=== PATIENT | female | born 1995 | race Caucasian/White ===

== ENCOUNTER 2016-12-31 18:46 | Observation (INO) | payer OTHER ==
[~2016-12-31] VITALS: Ht 170.2 cm; Wt 65.0 kg
[2016-12-31 18:48] VITALS: BP 135/93; PULSE 118; RESP 13; TEMP 98.8; O2SAT 99
[2016-12-31] MEDS ORDERED: SODIUM CHLOR 0.9% 1000 ML INJ 1,000 ML IV SCH ×2 (20:34)
[2016-12-31] MEDS ORDERED: ONDANSETRON HCL 4 MG/2 ML VIAL IVP ONE (20:45)
--- NOTE | 2016-12-31 20:50 | PD ---
HPI Chief Complaint: Medical Clearance Time Seen by Provider: 20:35 Travel History International Travel<30 days: No Contact w/Intl Traveler<30days: No Traveled to known affect area: No History of Present Illness HPI This is a 21-year-old female presents for evaluation of nausea, vomiting, diarrhea. The patient reports that one month ago her psychiatrist started her on 100 mg Zoloft for anxiety and depression. This was increased to 200 mg once a day 1 week ago. She reports that 5 days ago she began having nausea and vomiting was diarrhea. She believes that these may be side effects of Zoloft. She reports multiple episodes of emesis daily as well as watery stool. She feels like she is getting dehydrated, she has had difficulty keeping down any food or fluids. She does endorse a headache. She reports that yesterday she stood up and felt lightheaded and had a syncopal episode. There was no seizure activity per her significant other who was present during this episode. Patient is currently feeling lightheaded as well. She denies any fevers, flank pain, dysuria, chest pain or shortness of breath. Denies any dietary changes. No sick contacts with nausea and vomiting. No other medication changes. No other complaints. PFSH Past Medical History Depression: Yes Tetanus Vaccination: < 5 Years Influenza Vaccination: No ?: Not Social History Alcohol Use: Yes (occu, couple weeks ago) Tobacco Use: No Substance Use: Yes (juanna week ago) Allergies-Medications (Allergen,Severity, Reaction): Coded Allergies: No Known Allergies (Unverified , 12/31/16) Review of Systems Except as stated in HPI: all other systems reviewed are Neg Physical Exam Narrative GENERAL: Well-developed well-nourished female in no acute distress. She is tachycardic in triage. SKIN: Warm and dry. HEAD: Atraumatic. Normocephalic. EYES: Pupils equal and round. No scleral icterus. No injection or drainage. ENT: No nasal bleeding or discharge. Mucous membranes pink and moist. NECK: Trachea midline. No JVD. CARDIOVASCULAR: Regular rate and rhythm. No murmur appreciated. RESPIRATORY: No accessory muscle use. Clear to auscultation. Breath sounds equal bilaterally. GASTROINTESTINAL: Abdomen soft, non-tender, nondistended. Hepatic and splenic margins not palpable. No CVA tenderness. MUSCULOSKELETAL: No obvious deformities. No edema. NEUROLOGICAL: Awake and alert. No obvious cranial nerve deficits. Motor grossly within normal limits. Normal speech. PSYCHIATRIC: Appropriate mood and affect; insight and judgment normal. Data Data Last Documented VS Vital Signs Date Time Temp Pulse Resp B/P Pulse Ox O2 Delivery O2 Flow Rate FiO2 12/31/16 18:48 98.8 118 13 135/93 99 Orders Complete Blood Count With Diff (12/31/16 20:34) Comprehensive Metabolic Panel (12/31/16 20:34) Ondansetron Inj (Zofran Inj) (12/31/16 20:45) Sodium Chlor 0.9% 1000 Ml Inj (Ns 1000 M (12/31/16 20:34) Electrocardiogram (12/31/16 20:34) Ed Urine Pregnancytest Poc (12/31/16 20:34) Sodium Chlor 0.9% 1000 Ml Inj (Ns 1000 M (12/31/16 20:34) Magnesium (Mg) (12/31/16 20:34) Urinalysis - C+S If Indicated (12/31/16 20:34) Orthostatic Vital Signs (12/31/16 20:42) MDM Medical Decision Making Medical Screen Exam Complete: Yes Emergency Medical Condition: Yes Medical Record Reviewed: Yes Differential Diagnosis Medication side effect, gastroenteritis, dehydration, electrolyte abnormality, orthostatic hypotension Narrative Course This is a 21-year-old female whose Zoloft dose was increased to 200 mg one week ago. She has had nausea, vomiting, diarrhea since then and feels like she is getting dehydrated. Yesterday evening she had a syncopal event. On initial examination she is tachycardic with a heart rate of 118. Plan is for basic lab work, EKG, 2 L IV fluids and Zofran have been ordered. 2052: At the end of my shift the patient was signed out to my attending who will follow-up on the lab work. Blanco Siu Dec 31, 2016 20:50
[2016-12-31 21:07] LABS: AUTOMATED NEUTROPHIL # 3.9 TH/MM3 (1.8-7.7); BASOPHIL % 0.6 % (0.0-2.0); EOSINOPHIL # 0.2 TH/MM3 (0-0.4); EOSINOPHIL % 3.2 % (0.0-4.0); HEMATOCRIT 41.4 % (35.0-46.0); HEMO FLAGS DIFF FINAL; LYMPH % 25.8 % (9.0-44.0); LYMPHOCYTE # 1.6 TH/MM3 (1.0-4.8); MEAN CELL VOLUME 87.5 FL (80.0-100.0); MEAN CORPUSCULAR HEMOGLOBIN 29.7 PG (27.0-34.0); MEAN CORPUSCULAR HGB CONC 33.9 % (32.0-36.0); MONO % 8.3 % (0.0-8.0); NEUT % 62.1 % (16.0-70.0); PLATELET COUNT 325 TH/MM3 (150-450); RED BLOOD COUNT 4.73 MIL/MM3 (4.00-5.30); RED CELL DISTRIBUTION WIDTH 12.5 % (11.6-17.2); WHITE BLOOD COUNT 6.3 TH/MM3 (4.0-11.0)
[2016-12-31 21:42] LABS: ANION GAP 21 MEQ/L (5-15); AST (GOT) 20 U/L (15-37); BICARBONATE 13.8 MEQ/L (21.0-32.0); BLOOD UREA NITROGEN 6 MG/DL (7-18); CHLORIDE 101 MEQ/L (98-107); GLOMERULAR FILTRATION RATE 75 ML/MIN (>89); MAGNESIUM 1.8 MG/DL (1.5-2.5); POTASSIUM 3.4 MEQ/L (3.5-5.1); SODIUM (NA) 136 MEQ/L (136-145)
[2016-12-31 21:44] LABS: ALT (GPT) 18 U/L (10-53)
[2016-12-31 21:46] LABS: ALKALINE PHOSPHATASE 61 U/L (45-117); TOTAL BILIRUBIN ADULT 0.4 MG/DL (0.2-1.0)
[2016-12-31 22:44] VITALS: BP_SYST 125; BP_SYST 128; BP_SYST 133; BP_DIAS 75; BP_DIAS 80; BP_DIAS 98; RESP 16
[2016-12-31 22:51] LABS: BACTERIA, URINE RARE /hpf; BLOOD, URINE NEG (NEG); GLUCOSE,URINE NEG (NEG); KETONE, URINE 150 mg/dL (NEG); MUCUS URINE FEW /lpf (OCC); NITRITE,URINE NEG (NEG); SQUAMOUS EPITHELIAL CELL URINE 7 /hpf (0-5); URINE COLOR YELLOW (YELLW/STRAW)
[2016-12-31 22:52] LABS: COMMENT (UR) CULT NOT INDICATED; CULTURE IF INDICATED CULT NOT INDICATED
[2016-12-31 23:10] VITALS: BP 126/87; PULSE 98; RESP 18; O2SAT 100
[2016-12-31 23:25] LABS: BLOOD GAS VENOUS BASE EXCESS -13.8 mmol/L (-2-2); BLOOD GAS VENOUS HCO3 12 mmol/L (22-26); BLOOD GAS VENOUS O2 CONTENT 14.9 Vol % (9.0-17.0); BLOOD GAS VENOUS O2 HGB SAT 76 % (70-76); BLOOD GAS VENOUS PCO2 29 mmHg (44-48); BLOOD GAS VENOUS PO2 44 mmHg (35-40); BLOOD GAS VENOUS pH 7.24 (7.360-7.400); CRITICAL VALUE YES; OXYGEN DEVICE ROOM AIR; TEMP CORR TO 98.6
[2016-12-31 23:26] LABS: DRAW SITE IV; FIO2 21 %; STAT YES
[2016-12-31] MEDS ORDERED: NALOXONE HCL 0.4 MG/ML AMP IV PRN (23:45)
[2016-12-31] MEDS ORDERED: SODIUM CHLORIDE 0.9% FLUSH 10 ML FLUSH IV FLUSH PRN (23:45)
[2017-01-01] MEDS: SODIUM CHLOR 0.9% 1000 ML INJ 1,000 ML IV SCH ×2 (00:21→09:35)
--- NOTE | 2017-01-01 01:10 | PD ---
Data Data Last Documented VS Vital Signs Date Time Temp Pulse Resp B/P Pulse Ox O2 Delivery O2 Flow Rate FiO2 12/31/16 23:10 98 18 126/87 100 Room Air 12/31/16 18:48 98.8 Orders Complete Blood Count With Diff (12/31/16 20:34) Comprehensive Metabolic Panel (12/31/16 20:34) Ondansetron Inj (Zofran Inj) (12/31/16 20:45) Sodium Chlor 0.9% 1000 Ml Inj (Ns 1000 M (12/31/16 20:34) Electrocardiogram (12/31/16 20:34) Ed Urine Pregnancytest Poc (12/31/16 20:34) Sodium Chlor 0.9% 1000 Ml Inj (Ns 1000 M (12/31/16 20:34) Magnesium (Mg) (12/31/16 20:34) Urinalysis - C+S If Indicated (12/31/16 20:34) Orthostatic Vital Signs (12/31/16 20:42) Iv Access Insert/Monitor (12/31/16 20:57) Blood Gas Venous (Vbg) (12/31/16 23:01) Place In Observation (12/31/16 ) Vital Signs (Adult) Q4H (12/31/16 23:39) Activity Oob Ad Violeta (12/31/16 23:39) Supervisor Stone / Telemetry .CONTINUOUS (12/31/16 23:39) Diet Clear Liquid (01/01/17 Breakfast) Sodium Chlor 0.9% 1000 Ml Inj (Ns 1000 M (12/31/16 23:39) Sodium Chloride 0.9% Flush (Ns Flush) (12/31/16 23:45) Sodium Chloride 0.9% Flush (Ns Flush) (01/01/17 09:00) Ondansetron Inj (Zofran Inj) (12/31/16 23:45) Comprehensive Metabolic Panel (01/01/17 06:00) Complete Blood Count With Diff (01/01/17 06:00) Lipase (01/01/17 06:00) Naloxone Inj (Narcan Inj) (12/31/16 23:45) Admit Order (Ed Use Only) (12/31/16 23:42) Labs Laboratory Tests Test 12/31/16 12/31/16 12/31/16 20:55 22:40 23:13 White Blood Count 6.3 TH/MM3 Red Blood Count 4.73 MIL/MM3 Hemoglobin 14.0 GM/DL Hematocrit 41.4 % Mean Corpuscular Volume 87.5 FL Mean Corpuscular Hemoglobin 29.7 PG Mean Corpuscular Hemoglobin 33.9 % Concent Red Cell Distribution Width 12.5 % Platelet Count 325 TH/MM3 Mean Platelet Volume 8.5 FL Neutrophils (%) (Auto) 62.1 % Lymphocytes (%) (Auto) 25.8 % Monocytes (%) (Auto) 8.3 % Eosinophils (%) (Auto) 3.2 % Basophils (%) (Auto) 0.6 % Neutrophils # (Auto) 3.9 TH/MM3 Lymphocytes # (Auto) 1.6 TH/MM3 Monocytes # (Auto) 0.5 TH/MM3 Eosinophils # (Auto) 0.2 TH/MM3 Basophils # (Auto) 0.0 TH/MM3 CBC Comment DIFF FINAL Differential Comment Sodium Level 136 MEQ/L Potassium Level 3.4 MEQ/L Chloride Level 101 MEQ/L Carbon Dioxide Level 13.8 MEQ/L Anion Gap 21 MEQ/L Blood Urea Nitrogen 6 MG/DL Creatinine 0.93 MG/DL Estimat Glomerular Filtration 75 ML/MIN Rate Random Glucose 67 MG/DL Calcium Level 9.1 MG/DL Magnesium Level 1.8 MG/DL Total Bilirubin 0.4 MG/DL Aspartate Amino Transf 20 U/L (AST/SGOT) Alanine Aminotransferase 18 U/L (ALT/SGPT) Alkaline Phosphatase 61 U/L Total Protein 8.2 GM/DL Albumin 4.0 GM/DL Urine Color YELLOW Urine Turbidity HAZY Urine pH 6.0 Urine Specific [place] 1.023 Urine Protein 30 mg/dL Urine Glucose (UA) NEG mg/dL Urine Ketones 150 mg/dL Urine Occult Blood NEG Urine Nitrite NEG Urine Bilirubin NEG Urine Urobilinogen 2.0 MG/DL Urine Leukocyte Esterase SMALL Urine RBC 1 /hpf Urine WBC 2 /hpf Urine Squamous Epithelial 7 /hpf Cells Urine Bacteria RARE /hpf Urine Mucus FEW /lpf Microscopic Urinalysis Comment CULT NOT INDICATED Blood Gas Puncture Site IV Blood Gas Patient Temperature 98.6 Venous Blood pH 7.24 Venous Blood Partial Pressure 29 mmHg CO2 Venous Blood Partial Pressure 44 mmHg O2 Venous Blood HCO3 12 mmol/L Venous Blood Oxygen Saturation 76 % Venous Blood Oxygen Content 14.9 Vol % Venous Blood Base Excess -13.8 mmol/L Oxygen Delivery Device ROOM AIR Blood Gas Inspired Oxygen 21 % MDM Supervised Visit with RUPAL: Yes Narrative Course The history, exam, and medical decision-making in the associated midlevel provider note were completed with my assistance. I reviewed and agree with the findings presented. I attest that I had a [id number] encounter with the patient on the same day, and personally performed and documented my assessment and findings in the medical record. *My assessment and Findings: This is a 21-year-old female who presents to the emergency department in the setting of nausea vomiting and diarrhea having recently had an uptitration of her Zoloft. Labs were obtained which demonstrate significant anion gap metabolic acidosis and ketonuria which is surprising in the setting of a patient this age. Patient will be admitted for continued IV hydration. We also will perform a CT abdomen and pelvis to evaluate for obstruction or other surgical etiology of her symptoms. Physician Communication Physician Communication Discussed with Dr. Wilson Diagnosis Primary Impression: Dehydration Admitting Information Admitting Physician Requests: Observation Anna Cheatham MD Jan 01, 2017 01:10
[2017-01-01] MEDS ORDERED: IOHEXOL 350 MG/ML 10 ML VIAL (for RAD DIAG) IV ONE (01:15)
--- NOTE | 2017-01-01 01:22 | RADRPT ---
EXAM DATE/TIME: 01/01/2017 01:06 [facility] COMPARISON: No previous studies available for comparison. INDICATIONS : Abdominal pain, vomiting and diarrhea. IV CONTRAST: 70 cc Omnipaque 350 (iohexol) IV ORAL CONTRAST: No oral contrast ingested. RADIATION DOSE: 6.48 CTDIvol (mGy) MEDICAL HISTORY : None SURGICAL HISTORY : None. ENCOUNTER: Initial ACUITY: 1 day PAIN SCALE: 4/10 LOCATION: All quadrants. TECHNIQUE: Volumetric scanning of the abdomen and pelvis was performed. Using automated exposure control and adjustment of the mA and/or kV according to patient size, radiation dose was kept as low as reasonably achievable to obtain optimal diagnostic quality images. FINDINGS: CT Abdomen: The liver, spleen, pancreas, kidneys, adrenals are unremarkable. There is no evidence for any appreciable pathological adenopathy, free fluid, or bowel obstruction. Retroaortic left renal v ein is identified. CT pelvis: There is no evidence for mass, abscess formation, or any significant adenopathy within the pelvis. The appendix is not clearly visualized, however no definite signs of appendicitis is seen. CONCLUSION: Essentially unremarkable study. Erin Sandy MD on January 01, 2017 at 1:17 Board Certified Radiologist. This report was verified electronically.
[2017-01-01 03:16] VITALS: BP 128/83; PULSE 101; RESP 20; TEMP 96.5; O2SAT 99
[2017-01-01] MEDS: ONDANSETRON HCL 4 MG/2 ML VIAL IVP PRN ×3 (03:44→18:40)
[2017-01-01 08:00] VITALS: BP 109/65; PULSE 92; RESP 20; TEMP 97.3; O2SAT 98
--- NOTE | 2017-01-01 08:02 | EKG ---
Date Performed: 12/31/2016 Time Performed: 21:21:47 PTAGE: 21 years EKG: Sinus rhythm BORDERLINE RIGHT AXIS DEVIATION BORDERLINE ECG NO PREVIOUS TRACING DOCTOR: Sourav El Interpretating Date/Time 01/01/2017 08:01:59
[2017-01-01 08:07] LABS: AUTOMATED NEUTROPHIL # 3.6 TH/MM3 (1.8-7.7); BASOPHIL % 0.7 % (0.0-2.0); EOSINOPHIL # 0.2 TH/MM3 (0-0.4); EOSINOPHIL % 3.6 % (0.0-4.0); HEMO FLAGS DIFF FINAL; LYMPH % 28.4 % (9.0-44.0); LYMPHOCYTE # 1.8 TH/MM3 (1.0-4.8); MEAN CELL VOLUME 89.9 FL (80.0-100.0); MEAN CORPUSCULAR HEMOGLOBIN 29.1 PG (27.0-34.0); MEAN CORPUSCULAR HGB CONC 32.4 % (32.0-36.0); MONO % 9.5 % (0.0-8.0); NEUT % 57.8 % (16.0-70.0); PLATELET COUNT 263 TH/MM3 (150-450); RED BLOOD COUNT 4.01 MIL/MM3 (4.00-5.30); RED CELL DISTRIBUTION WIDTH 12.8 % (11.6-17.2); WHITE BLOOD COUNT 6.3 TH/MM3 (4.0-11.0)
[2017-01-01 08:39] LABS: ANION GAP 19 MEQ/L (5-15); AST (GOT) 14 U/L (15-37); BICARBONATE 11.8 MEQ/L (21.0-32.0); BLOOD UREA NITROGEN 4 MG/DL (7-18); CHLORIDE 107 MEQ/L (98-107); GLOMERULAR FILTRATION RATE 92 ML/MIN (>89); POTASSIUM 3.4 MEQ/L (3.5-5.1); SODIUM (NA) 138 MEQ/L (136-145)
[2017-01-01 08:40] LABS: ALT (GPT) 15 U/L (10-53)
[2017-01-01 08:45] LABS: ALKALINE PHOSPHATASE 48 U/L (45-117); TOTAL BILIRUBIN ADULT 0.4 MG/DL (0.2-1.0)
[2017-01-01] MEDS ORDERED: POTASSIUM CHLORIDE 20 MEQ CONTROLLED RELEASE TAB PO ONE (08:45)
[2017-01-01 09:02] LABS: BLOOD GAS BASE EXCESS -15.7 mmol/L (-2-2); BLOOD GAS CARBOXYHEMOGLOBIN 1.3 % (0-4); BLOOD GAS HCO3 10 mmol/L (22-26); BLOOD GAS METHEMOGLOBIN 0.7 % (0-2); BLOOD GAS O2 HGB SATURATION 96 % (90-100); BLOOD GAS OXYGEN CONTENT 15.9 Vol % (12.0-20.0); BLOOD GAS PCO2 21 mmHg (38-42); BLOOD GAS PO2 106 mmHG (61-120); BLOOD GAS TOTAL HGB 11.6 G/DL (12.0-16.0); TEMP CORR TO 98.6
[2017-01-01 09:03] LABS: CRITICAL VALUE YES; DRAW SITE RT RADIAL; FIO2 21 %; NUMBER OF ARTERIAL PUNCTURES 1; OXYGEN DEVICE ROOM AIR; STAT YES
[2017-01-01] MEDS: SODIUM CHLORIDE 0.9% FLUSH 10 ML FLUSH IV FLUSH SCH ×2 (09:34→21:00)
--- NOTE | 2017-01-01 11:29 | HHI.HP ---
[facility] Physician Makenzie Fernando MD Admission Diagnosis dehydration Diagnoses: Chief Complaint: nausea/vomiting/diarrhea Travel History International Travel<30 Days: No Contact w/Intl Traveler <30 Da: No Traveled to Known Affected Are: No History of Present Illness 21-year-old female with history of anxiety/depression presents with an 8 day history of intractable nausea and vomiting. Patient reports she has been seeing psychiatrist Dr. Hunt for her anxiety and depression, was started on Zoloft 100mg approximately 1 month ago, however a week ago Dr. Hunt increased the dosing to 200 mg daily. The patient reports she expected some side effects, and has been battling nausea/vomiting, and some diarrhea over the past eight days. She states she continued to take her medication, however over the past few days she has had intractable nausea and vomiting with approximately 15 episodes a day and has been unable keep down any liquids or solids. She denies any specific abdominal pains, just feels sore secondary to all the vomiting. She reports 1-2 episodes of nonbloody diarrhea daily. She reports chills after vomiting episodes, denies fevers. Denies any dysuria or increased urinary frequency/urgency. Denies any sick contacts. Denies eating anything out of the ordinary or any undercooked foods. Denies being on antibiotics recently. A few nights ago after she was vomiting all day, she tried to get up from bed, felt lightheaded and passed out. Boyfriend at bedside denies any seizure activity. Patient denies tongue biting or incontinence. The patient denies hitting her head that she was aware. She was able to get back in bed after the incident. Denies any palpitations, chest pain, or shortness of breath. She came to the ER last night because she was concerned about dehydration as she has not been able to tolerate anything by mouth for several days now. Her psychiatrist Dr. Hunt is on vacation until next week so she has been unable to get ahold of her. She is requesting to speak to psychiatrist here to discuss medication adjustments if needed. Of note, patient does smoke marijuana 3-5x per week however she has gone almost 2 weeks without marijuana secondary to her symptoms. Review of Systems Except as stated in HPI: all other systems reviewed are Neg Past Family Social History Past Medical History anxiety depression Past Surgical History Dental extractions Reported Medications Zoloft 200mg po daily control Valium 5mg prn Allergies: Coded Allergies: No Known Allergies (Unverified , 12/31/16) Active Ordered Medications Current Medications Medications (Trade) Dose Ordered Sig/Celena Route Start Time Stop Time Status Last Admin (NS Flush) 2 ml UNSCH PRN IV FLUSH 12/31/16 23:45 (NS Flush) 2 ml BID IV FLUSH 01/01/17 09:00 01/01/17 09:34 (Zofran Inj) 4 mg Q6H PRN IVP 12/31/16 23:45 01/01/17 09:51 Naloxone HCl 0.4 mg 0.4 mg UNSCH PRN IV 12/31/16 23:45 (NS + KCl 20 Meq Inj) 1,000 ml @ 100 mls/hr Q10H IV 01/01/17 10:15 Family History Paternal side with diabetes, cholesterol problems Brother and Mother with anxiety Social History Denies any tobacco use Denies alcohol use Occasional marijuana use, otherwise denies any other illicit drug use Physical Exam Vital Signs Vital Signs Date Time Temp Pulse Resp B/P Pulse Ox O2 Delivery O2 Flow Rate FiO2 01/01/17 08:00 97.3 92 20 109/65 98 01/01/17 03:16 96.5 101 20 128/83 99 12/31/16 23:10 98 18 126/87 100 Room Air 12/31/16 22:44 90 16 128/75 92 125/80 89 133/98 12/31/16 18:48 98.8 118 13 135/93 99 Physical Exam GENERAL: Well-nourished, well-developed young female patient in NAD. SKIN: Warm and dry. No rash. HEAD: Normocephalic. Atraumatic. EYES: Pupils equal and round. No scleral icterus. No injection or drainage. ENT: No nasal bleeding or discharge. Mucous membranes pink and moist. NECK: Supple. Trachea midline. CARDIOVASCULAR: Regular rate and rhythm. S1, S2 noted. No murmur appreciated. RESPIRATORY: No accessory muscle use. Clear to auscultation. Breath sounds equal bilaterally. GASTROINTESTINAL: Abdomen soft, non-tender, nondistended. Normoactive bowel sounds x4. MUSCULOSKELETAL: No obvious deformities. Extremities without clubbing, cyanosis , or edema. NEUROLOGICAL: Awake and alert. No obvious cranial nerve deficits. Motor grossly within normal limits. 5/5 muscle strength in bilateral upper and lower extremities. Normal speech. PSYCHIATRIC: Appropriate mood and affect; insight and judgment normal. Laboratory Laboratory Tests Test 12/31/16 12/31/16 12/31/16 01/01/17 20:55 22:40 23:13 06:55 White Blood Count 6.3 6.3 Red Blood Count 4.73 4.01 Hemoglobin 14.0 11.7 Hematocrit 41.4 36.0 Mean Corpuscular Volume 87.5 89.9 Mean Corpuscular Hemoglobin 29.7 29.1 Mean Corpuscular Hemoglobin 33.9 32.4 Concent Red Cell Distribution Width 12.5 12.8 Platelet Count 325 263 Mean Platelet Volume 8.5 8.7 Neutrophils (%) (Auto) 62.1 57.8 Lymphocytes (%) (Auto) 25.8 28.4 Monocytes (%) (Auto) 8.3 9.5 Eosinophils (%) (Auto) 3.2 3.6 Basophils (%) (Auto) 0.6 0.7 Neutrophils # (Auto) 3.9 3.6 Lymphocytes # (Auto) 1.6 1.8 Monocytes # (Auto) 0.5 0.6 Eosinophils # (Auto) 0.2 0.2 Basophils # (Auto) 0.0 0.0 CBC Comment DIFF FINAL DIFF FINAL Differential Comment Sodium Level 136 138 Potassium Level 3.4 3.4 Chloride Level 101 107 Carbon Dioxide Level 13.8 11.8 Anion Gap 21 19 Blood Urea Nitrogen 6 4 Creatinine 0.93 0.78 Estimat Glomerular Filtration 75 92 Rate Random Glucose 67 64 Calcium Level 9.1 8.1 Magnesium Level 1.8 Total Bilirubin 0.4 0.4 Aspartate Amino Transf 20 14 (AST/SGOT) Alanine Aminotransferase 18 15 (ALT/SGPT) Alkaline Phosphatase 61 48 Total Protein 8.2 6.4 Albumin 4.0 3.2 Urine Color YELLOW Urine Turbidity HAZY Urine pH 6.0 Urine Specific [place] 1.023 Urine Protein 30 Urine Glucose (UA) NEG Urine Ketones 150 Urine Occult Blood NEG Urine Nitrite NEG Urine Bilirubin NEG Urine Urobilinogen 2.0 Urine Leukocyte Esterase SMALL Urine RBC 1 Urine WBC 2 Urine Squamous Epithelial 7 Cells Urine Bacteria RARE Urine Mucus FEW Microscopic Urinalysis Comment CULT NOT INDICATED Blood Gas Puncture Site IV Blood Gas Patient Temperature 98.6 Venous Blood pH 7.24 Venous Blood Partial Pressure 29 CO2 Venous Blood Partial Pressure 44 O2 Venous Blood HCO3 12 Venous Blood Oxygen Saturation 76 Venous Blood Oxygen Content 14.9 Venous Blood Base Excess -13.8 Oxygen Delivery Device ROOM AIR Blood Gas Inspired Oxygen 21 Lipase 107 Test 01/01/17 08:52 Blood Gas Puncture Site RT RADIAL Blood Gas Patient Temperature 98.6 Blood Gas HCO3 10 Blood Gas Base Excess -15.7 Blood Gas Oxygen Saturation 96 Arterial Blood pH 7.29 Arterial Blood Partial 21 Pressure CO2 Arterial Blood Partial 106 Pressure O2 Arterial Blood Oxygen Content 15.9 Arterial Blood 1.3 Carboxyhemoglobin Arterial Blood Methemoglobin 0.7 Blood Gas Hemoglobin 11.6 Oxygen Delivery Device ROOM AIR Blood Gas Inspired Oxygen 21 Result Diagram: 01/01/17 0655 01/01/17 0655 Imaging Last Impressions Abdomen/Pelvis CT 01/01/17 0000 Signed Impressions: Service Date/Time: Friday, January 01, 2017 01:06 - CONCLUSION: Essentially unremarkable study. Erin Sandy MD Assessment and Plan Problem List: (1) Dehydration ICD Code: E86.0 Status: Acute (2) Intractable nausea and vomiting ICD Code: R11.2 Status: Acute Assessment and Plan 21-year-old female with history of anxiety/depression presents with an 8 day history of intractable nausea and vomiting. Intractable Nausea/Vomiting/Diarrhea, Inability to Tolerate Oral Intake: suspect secondary to Zoloft, recently increased dosing from 100mg to 200mg. CT abd/pelvis images reviewed, unremarkable. Continue supportive treatment with IVF and antiemetics prn. Clear liquid diet for now, advance as tolerated. Anion Gap Metabolic Acidosis: suspect secondary to GI losses with excessive vomiting. ABG reviewed, consistent with metabolic acidosis. Discussed with Dr. Lujan, recommends bicarb if pH < 7.1. Continue aggressive IVF hydration. Hypokalemia: K 3.4, suspect secondary to vomiting. Give KCl replacement. Monitor serum potassium. Dehydration: GFR diminished at 75. Secondary to GI losses. Continue IVF. Monitor BMP, improving. Syncope: occurred 2 nights prior to arrival. Secondary to dehydration. EKG reviewed and unremarkable. Orthostatics negative. Give IVF. Anxiety/Depression: on Zoloft and Valium prn. Will hold Zoloft for now with GI symptoms as above. Continue Valium 5mg prn. Consult psychiatry to assist with medication adjustment. Follow up with Dr. Hunt after discharge. DVT Prophylaxis: teds/SCDs Code Status Full Code Discussed Condition With Patient, boyfriend at bedside, Dr. Lujan Attending Statement Seen in her bedroom in the presence of her Mother, the patient states has no distress but continue with nausea, and even improving vomit, Not able to eat, improving Metabolic Acidosis, continue IV fluids, electrolyte derangement, re started Zoloft at the dose she states did not produce any symptoms, and following Psychiatry specialist recommendations. follow closely. Saray Eduardo PA-C Jan 01, 2017 11:29 Hunter Fermin MD Jan 01, 2017 17:39
[2017-01-01] MEDS: NS + KCL 20 MEQ INJ 1,000 ML IV SCH ×2 (11:33→20:15)
[2017-01-01 11:57] VITALS: BP 114/74; PULSE 91; RESP 18; TEMP 97.7; O2SAT 97
[2017-01-01 16:07] VITALS: BP 119/70; PULSE 88; RESP 23; TEMP 97.9; O2SAT 100
[2017-01-01] MEDS ORDERED: DIAZEPAM 5 MG TAB PO PRN (17:15)
[2017-01-01] MEDS ORDERED: SERTRALINE HCL 100 MG TAB PO ONE (18:00)
[2017-01-01 18:24] LABS: AMPHETAMINE, URINE NEG (NEG); BARBITURATES, URINE NEG (NEG); COCAINE, URINE NEG (NEG)
[2017-01-01] MEDS: ACETAMINOPHEN 325 MG TAB PO PRN (18:39)
[2017-01-01] MEDS: MAGNESIUM SULFATE 1 GM PREMIX 100 ML IV SCH ×2 (18:40→19:43)
[2017-01-01] MEDS: PANTOPRAZOLE SODIUM 40 MG VIAL IV PUSH SCH (18:40)
[2017-01-01 20:07] VITALS: BP 123/77; PULSE 99; RESP 20; TEMP 97.2; O2SAT 99
[2017-01-02] VITALS (8 sets, daily range): BP systolic 116–124; BP diastolic 74–83; PULSE 72–107; RESP 17–20; TEMP 96.3–98.4; O2SAT 97–100
[2017-01-02] MEDS: NS + KCL 20 MEQ INJ 1,000 ML IV SCH ×2 (05:45→18:37)
[2017-01-02] MEDS: ACETAMINOPHEN 325 MG TAB PO PRN ×3 (05:53→18:39)
[2017-01-02] MEDS: ONDANSETRON HCL 4 MG/2 ML VIAL IVP PRN ×3 (05:53→18:38)
[2017-01-02 08:09] LABS: POTASSIUM 3.8 MEQ/L (3.5-5.1)
[2017-01-02] MEDS ORDERED: ZOLO100T PO (10:18)
[2017-01-02] MEDS ORDERED: DIAZ5 PO (10:23)
[2017-01-02] MEDS ORDERED: SPRI28TA PO (10:23)
[2017-01-02] MEDS: SODIUM CHLORIDE 0.9% FLUSH 10 ML FLUSH IV FLUSH SCH ×2 (10:29→21:00)
--- NOTE | 2017-01-02 12:40 | HHI.PR ---
Subjective Remarks Follow up for intractable nausea/vomiting. The patient reports feeling much better today, still occasionally nauseous however no vomiting overnight. Denies any abdominal pain. Denies any diarrhea. She was able tolerate her clear liquid diet last night and this morning. She agrees to advancing the diet. Discussed with the patient and family at bedside. The patient does have an appointment with her psychiatrist Dr. Hunt on 01/07/17 at 1 PM. Discussed for the patient to continue Zoloft at 100 mg dosing for now until seen by Dr. Hunt; patient verbalized understanding. The patient agrees to discharge home today if she is able tolerate her lunch. Objective Vitals Vital Signs Date Time Temp Pulse Resp B/P Pulse Ox O2 Delivery O2 Flow Rate FiO2 01/02/17 07:52 95 01/02/17 07:51 97.5 100 17 123/83 100 01/02/17 05:00 96.3 97 20 117/74 100 01/02/17 03:03 85 01/02/17 00:42 97.4 72 20 124/77 99 01/01/17 20:07 97.2 99 20 123/77 99 01/01/17 16:07 97.9 88 23 119/70 100 Result Diagram: 01/01/17 0655 01/02/17 0715 Imaging Last Impressions Abdomen/Pelvis CT 01/01/17 0000 Signed Impressions: Service Date/Time: Sunday, January 01, 2017 01:06 - CONCLUSION: Essentially unremarkable study. Erin Sandy MD Objective Remarks GENERAL: Well-nourished, well-developed young female patient in [facility]. SKIN: Warm and dry. No rash. HEENT: Normocephalic. Atraumatic.Pupils equal and round. Mucous membranes pink and moist. NECK: Supple. Trachea midline. CARDIOVASCULAR: Regular rate and rhythm. S1, S2 noted. No murmur appreciated. RESPIRATORY: No accessory muscle use. Clear to auscultation. Breath sounds equal bilaterally. GASTROINTESTINAL: Abdomen soft, non-tender, nondistended. Normoactive bowel sounds x4. MUSCULOSKELETAL: No obvious deformities. Extremities without clubbing, cyanosis , or edema. NEUROLOGICAL: Awake and alert. No obvious cranial nerve deficits. Motor grossly within normal limits. Normal speech. PSYCHIATRIC: Appropriate mood and affect; insight and judgment normal. Medications and IVs Current Medications Medications (Trade) Dose Ordered Sig/Celena Route Start Time Stop Time Status Last Admin (NS Flush) 2 ml UNSCH PRN IV FLUSH 12/31/16 23:45 (NS Flush) 2 ml BID IV FLUSH 01/01/17 09:00 01/02/17 10:29 (Zofran Inj) 4 mg Q6H PRN IVP 12/31/16 23:45 01/02/17 05:53 Naloxone HCl 0.4 mg 0.4 mg UNSCH PRN IV 12/31/16 23:45 (NS + KCl 20 Meq Inj) 1,000 ml @ 100 mls/hr Q10H IV 01/01/17 10:15 01/02/17 05:45 (Protonix Inj) 40 mg Q24H IV PUSH 01/01/17 18:00 01/01/17 18:40 (Valium) 5 mg Q12H PRN PO 01/01/17 17:15 (Tylenol) 650 mg Q4H PRN PO 01/01/17 17:30 01/02/17 05:53 A/P Problem List: (1) Dehydration ICD Code: E86.0 Status: Acute (2) Intractable nausea and vomiting ICD Code: R11.2 Status: Acute Assessment and Plan 21-year-old female with history of anxiety/depression presents with an 8 day history of intractable nausea and vomiting. Intractable Nausea/Vomiting/Diarrhea, Inability to Tolerate Oral Intake: suspect secondary to Zoloft, recently increased dosing from 100mg to 200mg. CT abd/pelvis images reviewed, unremarkable. Continue supportive treatment with IVF and antiemetics prn. Started with clear liquid diet, patient tolerated well with no vomiting overnight, advanced to BRAT diet today, will discharge if patient tolerates. Anion Gap Metabolic Acidosis: suspect secondary to GI losses with excessive vomiting. ABG reviewed, consistent with metabolic acidosis. Discussed with Dr. Lujan, recommends bicarb if pH < 7.1. Continue aggressive IVF hydration. Labs much improved today, anion gap closed. Repeat labs at 3pm today. Hypokalemia: K 3.4, suspect secondary to vomiting. Give KCl replacement. Monitor serum potassium. Repeat K 3.8. Resolved. Dehydration: GFR diminished at 75. Secondary to GI losses. Continue IVF. Monitor BMP. Resolved. Syncope: occurred 2 nights prior to arrival. Secondary to dehydration. EKG reviewed and unremarkable. Orthostatics negative. Given IVF. No further symptoms. Anxiety/Depression: on Zoloft and Valium prn. Continued Zoloft at decreased dosing of 100mg daily. Continued Valium 5mg prn. Consult psychiatry, discussed with Dr. Blank, recommends continuing Zoloft at 100mg until seen by her outpatient psychiatrist. Patient has f/up appt scheduled with psychiatry Dr. Hunt on 01/07/17 at 1pm. DVT Prophylaxis: teds/SCDs Discharge Planning Advanced diet for lunch. Repeat labs at 3pm. If patient tolerates lunch and 3pm labs continue to improve, patient will be discharged home. Discharge patient to home Condition on discharge: Improved Regular Diet as tolerated Ad Violeta activity Rx written: patient already has Rx for zofran prn, instructed to continue Follow-up with primary care physician within 1 week Follow up with psychiatry Dr. Hunt on 01/07/17 at 1pm 1730hrs: Afternoon BMP not much improved. However patient tolerated her BRAT meal for lunch, no further vomiting/diarrhea. The patient adamantly wants to go home. Explained that her labs did not improve and would benefit from continued IVF. She does not understand that since she's tolerating her food and no further nausea/vomiting why her labs are getting worse. She again asks if she can be discharged and return to the ER if her symptoms worsen. We discussed repeating labs at 7pm and will only discharge if the BMP shows improvement, patient agrees with this plan. Discussed with the nurse Jimenez. Attending Statement Discussed with TAURUS Eduardo, patient seen in her bedroom male Relative present by her side totally asymptomatic will continue Zoloft 100 mg as per Psychiatry specialist, Discharge Home and follow by her Primary Psychiatry specialist. has moderate metabolic Acidosis improving not vomiting anymore. Saray Edurado PA-C Jan 02, 2017 12:40 Hunter Fermin MD Jan 02, 2017 17:54
--- NOTE | 2017-01-02 14:42 | PD.CONS ---
Provisional Diagnosis Admission Date Dec 31, 2016 at 23:44 [place]. Adjustment disorder with depressed mood. History of Present Illness Service Psychiatry Consult Requested By [facility] Physician Makenzie Fernando MD Review of Systems Except as stated in HPI: all other systems reviewed are Neg Gastrointestinal: COMPLAINS OF: Vomiting Past Family Social History Coded Allergies: No Known Allergies (Unverified , 12/31/16) Reported Medications Diazepam (Valium)5 Mg Tab5 Mg PO BID PRN (ANXIETY) Ref 0 01/02/17 Norgestimate-Ethinyl Estradiol (Sprintec 28)0.25-35 mg-Mcg Tab1 Tab PO DAILY # 1 PACK Ref 0 01/02/17 Sertraline (Zoloft)100 Mg [id number] Mg PO DAILY #30 TAB Ref 0 01/02/17 Current Medications Medications (Trade) Dose Ordered Sig/Celena Route Start Time Stop Time Status Last Admin (NS Flush) 2 ml UNSCH PRN IV FLUSH 12/31/16 23:45 (NS Flush) 2 ml BID IV FLUSH 01/01/17 09:00 01/02/17 10:29 (Zofran Inj) 4 mg Q6H PRN IVP 12/31/16 23:45 01/02/17 12:47 Naloxone HCl 0.4 mg 0.4 mg UNSCH PRN IV 12/31/16 23:45 (NS + KCl 20 Meq Inj) 1,000 ml @ 100 mls/hr Q10H IV 01/01/17 10:15 01/02/17 05:45 (Protonix Inj) 40 mg Q24H IV PUSH 01/01/17 18:00 01/01/17 18:40 (Valium) 5 mg Q12H PRN PO 01/01/17 17:15 (Tylenol) 650 mg Q4H PRN PO 01/01/17 17:30 01/02/17 12:47 Family History positive for mood disorders. Social History No etoh or drug use. Patient's Strengths (min. 2) verbal and has access to health care. Physical Exam Vital Signs Vital Signs Date Time Temp Pulse Resp B/P Pulse Ox O2 Delivery O2 Flow Rate FiO2 01/02/17 12:20 97.0 92 18 124/79 97 12/31/16 23:10 Room Air Mental Status Examination Speech: Unremarkable Orientation: x3 Memory: Unremarkable Thought Process: Organized, Goal Directed Thought Content: Unremarkable Hallucination Type: None Attention and Concentration: Good Suicidal Ideation: No Previous Suicide Attempts: No Homicidal Ideation: No Previous Homicide Attempts: No Insight: Fair Judgment: WNL Affect: Good Mood: Appropriate Motor Activity: Normal gait Assessment & Plan Problem List: (1) Adjustment disorder with depressed mood ICD Code: F43.21 Assessment & Plan Estimated LOS: days Cont pt. on Zoloft 100 mg qd till sees psychiatrist. Mauricio Blank MD Jan 02, 2017 14:42
--- NOTE | 2017-01-02 15:53 | HHI.DCPOC ---
Discharge Care Plan Diagnosis: (1) Intractable nausea and vomiting (2) Dehydration Goals to Promote Your Health * To prevent worsening of your condition and complications * To maintain your health at the optimal level Directions to Meet Your Goals Take your medications as prescribed Follow your dietary instruction Follow activity as directed Keep your appointments as scheduled Take your immunizations and boosters as scheduled If your symptoms worsen call your PCP, if no PCP go to Urgent Care Center or Emergency Room Smoking is Dangerous to Your Health. Avoid second hand smoke Call the 24-hour hour crisis hotline for domestic abuse at Saray Eduardo PA-C Jan 02, 2017 3:53 pm
[2017-01-02 17:12] LABS: BICARBONATE 14.5 MEQ/L (21.0-32.0); POTASSIUM 3.5 MEQ/L (3.5-5.1)
[2017-01-02] MEDS: PANTOPRAZOLE SODIUM 40 MG VIAL IV PUSH SCH (18:52)
[2017-01-02 23:28] LABS: BICARBONATE 17.1 MEQ/L (21.0-32.0); POTASSIUM 3.7 MEQ/L (3.5-5.1)
[2017-01-03] VITALS: BP 134/69; PULSE 97; RESP 22; TEMP 97.8; O2SAT 99
== END 2017-01-03 01:11 | disposition home or self-care (01) ==
LOC: NEPD 18:46 → NEDA 23:44 → NEPHCDU 01-01 03:11
PROVIDERS: ADMIT Hospitalist; ATTEND Hospitalist
DX: E86.0 Dehydration (principal); R19.7 Diarrhea, unspecified; R11.2 Nausea with vomiting, unspecified; R55 Syncope and collapse; F41.9 Anxiety disorder, unspecified; F43.21 Adjustment disorder with depressed mood; F32.9 Major depressive disorder, single episode, unspecified; E87.2 Acidosis; E87.6 Hypokalemia; R00.0 Tachycardia, unspecified; R82.4 Acetonuria; F12.90 Cannabis use, unspecified, uncomplicated
CPT/HCPCS: 36600; 74177; 80048; 80053; 80307; 81001; 82805; 83690; 83735; 84703; 85025; 93005; 96361; 96365; 96366; 96375; 96376; 99285; C9113; G0378; J2405; J3475; J3480; J7030; Q9967

== ENCOUNTER 2017-03-21 08:29 | Emergency (ER) | payer OTHER ==
[~2017-03-21] VITALS: Ht 170.2 cm; Wt 58.0 kg
[~2017-03-21 08:29] MED LIST: DIAZ5 PO; SPRI28TA PO; ZOLO100T PO
[2017-03-21 08:32] VITALS: BP 125/78; PULSE 58; RESP 16; TEMP 97.8; O2SAT 100
[2017-03-21] MEDS ORDERED: DESV25TA PO (08:59)
[2017-03-21 09:56] LABS: BASOPHIL % 0.6 % (0.0-2.0); EOSINOPHIL # 0.2 TH/MM3 (0-0.4); EOSINOPHIL % 4.3 % (0.0-4.0); HEMATOCRIT 35.2 % (35.0-46.0); HEMO FLAGS DIFF FINAL; LYMPH % 26.2 % (9.0-44.0); LYMPHOCYTE # 1.4 TH/MM3 (1.0-4.8); MEAN CELL VOLUME 90.9 FL (80.0-100.0); MEAN CORPUSCULAR HEMOGLOBIN 29.6 PG (27.0-34.0); MEAN CORPUSCULAR HGB CONC 32.5 % (32.0-36.0); MONO % 10.1 % (0.0-8.0); NEUT % 58.8 % (16.0-70.0); PLATELET COUNT 228 TH/MM3 (150-450); RED BLOOD COUNT 3.87 MIL/MM3 (4.00-5.30); WHITE BLOOD COUNT 5.1 TH/MM3 (4.0-11.0)
[2017-03-21] MEDS ORDERED: DIAZEPAM 5 MG TAB PO PRN (10:00)
[2017-03-21 10:08] LABS: ANION GAP 7 MEQ/L (5-15); AST (GOT) 16 U/L (15-37); BICARBONATE 23.1 MEQ/L (21.0-32.0); BLOOD UREA NITROGEN 10 MG/DL (7-18); CHLORIDE 109 MEQ/L (98-107); GLOMERULAR FILTRATION RATE 120 ML/MIN (>89); POTASSIUM 3.7 MEQ/L (3.5-5.1); SODIUM (NA) 139 MEQ/L (136-145)
[2017-03-21 10:11] LABS: ALKALINE PHOSPHATASE 43 U/L (45-117); ALT (GPT) 15 U/L (10-53); TOTAL BILIRUBIN ADULT 0.6 MG/DL (0.2-1.0)
[2017-03-21 10:16] LABS: ALCOHOL LESS THAN 3 MG/DL (0-5)
[2017-03-21] MEDS ORDERED: DIAZEPAM 5 MG TAB PO ONE (10:45)
--- NOTE | 2017-03-21 11:14 | PD ---
HPI Chief Complaint: Suicide Ideation/Attempt Time Seen by Provider: 09:12 Travel History International Travel<30 days: No Contact w/Intl Traveler<30days: No Traveled to known affect area: No History of Present Illness HPI This is a 21-year-old female who has a history of depression and anxiety who presents to the emergency department with increasing erratic behavior, thoughts of hurting herself and hurting others, and destructive actions trying to hurt her family. She says she doesn't want to live anymore and thinks people should just take her out in the back and shooter. She says she recently started on Pristiq and she feels like she is getting worse. She feels like every morning she wakes up and she doesn't know if she is going to be really happy really depressed. She is not able to hold a job and she is living with her parents and she feels like she is fighting all the time with her . PFSH Past Medical History Blood Disorders: No Anxiety: Yes Depression: Yes Cancer: No Cardiovascular Problems: No Diminished Hearing: No Endocrine: No Genitourinary: No Immune Disorder: No Musculoskeletal: No Neurologic: No Psychiatric: Yes Reproductive: No Respiratory: No Tetanus Vaccination: Unknown Influenza Vaccination: No ?: Not LMP: 03/04/17 Social History Alcohol Use: Yes ([facility]) Tobacco Use: No Substance Use: Yes ([facility]) Allergies-Medications (Allergen,Severity, Reaction): Coded Allergies: No Known Allergies (Unverified , 03/21/17) Reported Meds & Prescriptions Reported Meds & Active Scripts Active Reported Pristiq 24 HR (Desvenlafaxine ER 24 HR) 25 Mg Tab 25 Mg PO DAILY Review of Systems Except as stated in HPI: all other systems reviewed are Neg Physical Exam Narrative GENERAL:Well appearing, no acute distress SKIN: Focused skin assessment warm and dry. HEAD: Atraumatic. Normocephalic. EYES: Pupils equal and round. No injection or drainage. ENT: Moist mucous membranes NECK: Trachea midline. CARDIOVASCULAR: Regular rate and rhythm. No murmur appreciated. RESPIRATORY: Clear to auscultation. Breath sounds equal bilaterally. GASTROINTESTINAL: Abdomen soft, non-tender, nondistended. MUSCULOSKELETAL: No obvious deformities. NEUROLOGICAL: Awake and alert. No obvious cranial nerve deficits. Moving all extremities. PSYCHIATRIC: Somewhat flat affect, endorsing suicidal ideation Data Data Last Documented VS Vital Signs Date Time Temp Pulse Resp B/P (MAP) Pulse Ox O2 Delivery O2 Flow Rate FiO2 03/21/17 09:01 16 98 Room Air 03/21/17 08:32 97.8 58 125/78 (94) Orders Orders Complete Blood Count With Diff (03/21/17 09:22) Comprehensive Metabolic Panel (03/21/17 09:22) Psych Screen (03/21/17 09:22) Drug Screen, Random Urine (03/21/17 09:22) Alcohol (Ethanol) (03/21/17 09:22) Diazepam (Valium) (03/21/17 10:00) Diazepam (Valium) (03/21/17 10:45) Labs Laboratory Tests Test 03/21/17 09:40 White Blood Count 5.1 TH/MM3 Red Blood Count 3.87 MIL/MM3 Hemoglobin 11.5 GM/DL Hematocrit 35.2 % Mean Corpuscular Volume 90.9 FL Mean Corpuscular Hemoglobin 29.6 PG Mean Corpuscular Hemoglobin Concent 32.5 % Red Cell Distribution Width 13.0 % Platelet Count 228 TH/MM3 Mean Platelet Volume 8.3 FL Neutrophils (%) (Auto) 58.8 % Lymphocytes (%) (Auto) 26.2 % Monocytes (%) (Auto) 10.1 % Eosinophils (%) (Auto) 4.3 % Basophils (%) (Auto) 0.6 % Neutrophils # (Auto) 3.0 TH/MM3 Lymphocytes # (Auto) 1.4 TH/MM3 Monocytes # (Auto) 0.5 TH/MM3 Eosinophils # (Auto) 0.2 TH/MM3 Basophils # (Auto) 0.0 TH/MM3 CBC Comment DIFF FINAL Differential Comment Blood Urea Nitrogen 10 MG/DL Creatinine 0.62 MG/DL Random Glucose 94 MG/DL Total Protein 6.4 GM/DL Albumin 3.6 GM/DL Calcium Level 8.3 MG/DL Alkaline Phosphatase 43 U/L Aspartate Amino Transf (AST/SGOT) 16 U/L Alanine Aminotransferase (ALT/SGPT) 15 U/L Total Bilirubin 0.6 MG/DL Sodium Level 139 MEQ/L Potassium Level 3.7 MEQ/L Chloride Level 109 MEQ/L Carbon Dioxide Level 23.1 MEQ/L Anion Gap 7 MEQ/L Estimat Glomerular Filtration Rate 120 ML/MIN Urine Opiates Screen NEG Urine Barbiturates Screen NEG Urine Amphetamines Screen NEG Urine Benzodiazepines Screen POS Urine Cocaine Screen NEG Urine Cannabinoids Screen POS Ethyl Alcohol Level LESS THAN 3 MG/DL MDM Medical Decision Making Medical Screen Exam Complete: Yes Emergency Medical Condition: Yes Interpretation(s) Afebrile, bradycardic, normotensive No leukocytosis Mild anemia Electrolytes are reassuring Drug screen is positive for benzodiazepines and cannabinoids Alcohol: negative Differential Diagnosis Depression, bipolar disorder, adjustment reaction, substance abuse Narrative Course This is a 21-year-old female who presents to the emergency department accompanied by her family concerned because her moods have been [id number] and she's been having thoughts of hurting herself and she's been violent towards her family members. Labs are obtained which are reassuring. Her drug screen was positive for cannabinoid. She takes benzodiazepines regularly. Patient is medically cleared for psychiatric evaluation. At this time she is voluntarily accepting evaluation. Anna Cheatham MD Mar 21, 2017 11:14
[2017-03-21] MEDS ORDERED: HALOPERIDOL LACTATE 5 MG/ML AMP IM ONE (11:30)
[2017-03-21 16:11] VITALS: BP 113/66; PULSE 66; RESP 16; O2SAT 100
[2017-03-21 17:55] VITALS: BP 98/60; PULSE 65; RESP 16; O2SAT 98
[2017-03-21] MEDS ORDERED: LORA1TAB12 PO (19:06)
[2017-03-21] MEDS ORDERED: VENL37.595 PO (19:06)
[2017-03-21] MEDS ORDERED: DIAZ5TAB PO (19:07)
[2017-03-21] MEDS ORDERED: SERT-129 PO (19:08)
[2017-03-21] MEDS ORDERED: TRINTAB7 PO (19:09)
[2017-03-21] MEDS ORDERED: SERT25TA83 PO (19:09)
[2017-03-22 02:05] VITALS: BP 126/72; PULSE 88; RESP 18; O2SAT 99
[2017-03-22 06:24] VITALS: BP 109/65; PULSE 81; RESP 18; TEMP 97.1; O2SAT 99
[2017-03-22] MEDS ORDERED: PROZ20CA11 PO (09:54)
--- NOTE | 2017-03-22 09:58 | PD ---
History of Present Illness Chief Complaint: Suicide Ideation/Attempt Time Seen by Provider: 09:30 Travel History International Travel<30 Days: No Contact w/Intl Traveler<30days: No Known affected area: No Legal Status Legal Status: Voluntary History of Present Illness: 21-year-old female seen voluntary by this physician after she apparently had a bad reaction to Pristiq. She is sees Dr. Yesica Hunt as an outpatient psychiatrist and recently started on this medication. She was unprepared for her reaction, which included dysphoria, tearfulness, anxiety, etc. She apparently expressed suicidal ideation. At the present time, the patient denies any suicidal or homicidal ideation, plan or intent. She is happy, smiling and wanting to go home with her . We did discuss her medications and she does have a supply of Valium and Ativan at home in case of panic attacks. This physician recommended she go back on Prozac, which was helpful to her in the past. Patient was given a prescription for Prozac even though she stated she had some supply at home. She was encouraged to return to her outpatient psychiatrist. She is verbally donna for safety. PFSH Past Medical History Blood Disorders: No Anxiety: Yes Depression: Yes Cancer: No Cardiovascular Problems: No Diminished Hearing: No Endocrine: No Genitourinary: No Immune Disorder: No Musculoskeletal: No Neurologic: No Psychiatric: Yes Reproductive: No Respiratory: No Tetanus Vaccination: Unknown Influenza Vaccination: No ?: Not LMP: 03/04/17 Psychiatric History Psychiatric History Hx Psychiatric Treatment: Patient states that she has been treated by Psychiatrist, Dr.Sharon Gilbert MD since the end of October. Used to see . Previously she used to see and a therapist within that practice. History of Inpatient Treatment: No Guns or firearms in home: No Social History Hx Alcohol Use: Yes ([facility]) Hx Tobacco Use: No Hx Substance Use: Yes (Marijuanna - every other day - but makes it into brownies.) Substance Use Type: Alcohol, Marijuana, Nicotine/Cigarettes, Benzos (Valium, Xanax) Other Substances Used: Denies any smoking..."that's bad for you". Hx of Substance Use Treatment: No Allergies-Medications (Allergen,Severity, Reaction): Coded Allergies: No Known Allergies (Unverified , 03/21/17) Per [facility] [phone]. Reported Meds & Prescriptions Reported Meds & Active Scripts Active Prozac (Fluoxetine HCl) 20 Mg Cap 20 Mg PO DAILY Reported Trinessa (Norgestimate-Ethinyl Estradiol) 0.18/0.215/0.25 mg-35 Mcg Tab 1 Tab PO DAILY Sertraline (Sertraline HCl) 25 Mg Tab 25 Mg PO DAILY Sertraline (Sertraline HCl) 100 Mg Tab 100 Mg PO DAILY Diazepam 5 Mg Tab 5 Mg PO DAILY PRN Venlafaxine ER 24 HR (Venlafaxine HCl) 37.5 Mg Cap Unknown Dose PO DAILY Lorazepam 1 Mg Tab 1 Mg PO Q8H PRN Pristiq 24 HR (Desvenlafaxine ER 24 HR) 25 Mg Tab 25 Mg PO DAILY Review of Systems Except as stated in HPI: all other systems reviewed are Neg Exam Alert: Yes [place]: Person, Place, Date, Situation Mood: Calm Affect: Euthymic Speech: Clear, Logical Eye Contact: Normal Memory Intact: Immediate, Recent, Remote Insight/Judgement Adequate MDM Medical Decision Making Medical Record Reviewed: Yes Assessment/Plan Patient interviewed at bedside. Electronic medical record was reviewed. Case was discussed with nurse Vanessa. Patient does not meet criteria for Mcfadden act or involuntary psychiatric hospitalization. She is referred back to her outpatient psychiatrist for further treatment but given a prescription for Prozac. Orders Orders Diazepam (Valium) (03/21/17 10:45) Haloperidol Inj (Haldol Inj) (03/21/17 11:30) Diet Regular Basic (03/21/17 Lunch) Diet Regular Basic (03/22/17 Breakfast) Results Vital Signs Date Time Temp Pulse Resp B/P (MAP) Pulse Ox O2 Delivery O2 Flow Rate FiO2 03/22/17 06:24 97.1 81 18 109/65 (80) 99 03/22/17 02:05 88 18 126/72 (90) 99 03/21/17 17:55 65 16 98/60 (73) 98 Room Air 03/21/17 16:11 66 16 113/66 (82) 100 Room Air Diagnosis Primary Impression: Adjustment disorder with depressed mood Prescriptions Fluoxetine (Prozac) 20 Mg Cap 20 MG PO DAILY, #30 CAP 0 Refills Prov: Mauricio Blank MD 03/22/17 Mauricio Blank MD Mar 22, 2017 09:58
--- NOTE | 2017-03-22 10:05 | PD ---
Physical Exam Narrative Patient was medically cleared by ED physician. Patient is psychiatric cleared by psychiatrist. Data Data Last Documented VS Vital Signs Date Time Temp Pulse Resp B/P (MAP) Pulse Ox O2 Delivery O2 Flow Rate FiO2 03/22/17 06:24 97.1 81 18 109/65 (80) 99 03/21/17 17:55 Room Air Orders Orders Complete Blood Count With Diff (03/21/17 09:22) Comprehensive Metabolic Panel (03/21/17 09:22) Psych Screen (03/21/17 09:22) Drug Screen, Random Urine (03/21/17 09:22) Alcohol (Ethanol) (03/21/17 09:22) Diazepam (Valium) (03/21/17 10:00) Diazepam (Valium) (03/21/17 10:45) Haloperidol Inj (Haldol Inj) (03/21/17 11:30) Diet Regular Basic (03/21/17 Lunch) Diet Regular Basic (03/22/17 Breakfast) Diet Regular Basic (03/22/17 Lunch) Labs Laboratory Tests Test 03/21/17 09:40 White Blood Count 5.1 TH/MM3 Red Blood Count 3.87 MIL/MM3 Hemoglobin 11.5 GM/DL Hematocrit 35.2 % Mean Corpuscular Volume 90.9 FL Mean Corpuscular Hemoglobin 29.6 PG Mean Corpuscular Hemoglobin Concent 32.5 % Red Cell Distribution Width 13.0 % Platelet Count 228 TH/MM3 Mean Platelet Volume 8.3 FL Neutrophils (%) (Auto) 58.8 % Lymphocytes (%) (Auto) 26.2 % Monocytes (%) (Auto) 10.1 % Eosinophils (%) (Auto) 4.3 % Basophils (%) (Auto) 0.6 % Neutrophils # (Auto) 3.0 TH/MM3 Lymphocytes # (Auto) 1.4 TH/MM3 Monocytes # (Auto) 0.5 TH/MM3 Eosinophils # (Auto) 0.2 TH/MM3 Basophils # (Auto) 0.0 TH/MM3 CBC Comment DIFF FINAL Differential Comment Blood Urea Nitrogen 10 MG/DL Creatinine 0.62 MG/DL Random Glucose 94 MG/DL Total Protein 6.4 GM/DL Albumin 3.6 GM/DL Calcium Level 8.3 MG/DL Alkaline Phosphatase 43 U/L Aspartate Amino Transf (AST/SGOT) 16 U/L Alanine Aminotransferase (ALT/SGPT) 15 U/L Total Bilirubin 0.6 MG/DL Sodium Level 139 MEQ/L Potassium Level 3.7 MEQ/L Chloride Level 109 MEQ/L Carbon Dioxide Level 23.1 MEQ/L Anion Gap 7 MEQ/L Estimat Glomerular Filtration Rate 120 ML/MIN Urine Opiates Screen NEG Urine Barbiturates Screen NEG Urine Amphetamines Screen NEG Urine Benzodiazepines Screen POS Urine Cocaine Screen NEG Urine Cannabinoids Screen POS Ethyl Alcohol Level LESS THAN 3 MG/DL MDM Supervised Visit with RUPAL: No Narrative Course Patient was medically cleared by ED physician. Patient was psychiatrically cleared by psychiatrist. Patient to be discharged. Diagnosis Primary Impression: Adjustment disorder with depressed mood Patient Instructions: General Instructions Additional Instruction: Follow-up with local physician. Scripts Fluoxetine (Prozac) 20 Mg Cap 20 MG PO DAILY, #30 CAP 0 Refills Prov: Mauricio Blank MD 03/22/17 Disposition: 01 DISCHARGE HOME Condition: Stable Manpreet Leal MD Mar 22, 2017 10:05
== END 2017-03-22 11:52 | disposition home or self-care (01) ==
LOC: NEPD 08:29 → NEPJ 03-22 11:52
DX: F43.21 Adjustment disorder with depressed mood (principal); Z79.899 Other long term (current) drug therapy; Z86.59 Personal history of other mental and behavioral disorders
CPT/HCPCS: 80053; 80307; 85025; 99284; J1630